=== PATIENT | male | born 1960 | race Caucasian/White ===

== ENCOUNTER → 2018-01-22 09:35 | Outpatient (POV) | payer MEDICAID, SELFPAY | PROVIDERS: Visit Provider Dentist | DX: Z00.00 Encounter for general adult medical examination without abnormal findings (principal) ==

== ENCOUNTER → 2020-10-10 09:53 | Outpatient (CLI) | payer MEDICAID, SELFPAY ==
--- NOTE | 2020-10-10 10:00 | XR_ITS ---
PROCEDURE: XR FOOT RT MIN 3V CLINICAL INDICATION: PAIN IN RT FOOT COMPARISON: No exams were available for comparison FINDINGS: There are severe osteoarthritic changes with prominent osteophytes at the 1st metatarsophalangeal joint. No fracture or dislocation. IMPRESSION: Severe osteoarthritic changes with bony spurs at the 1st metatarsophalangeal joint Dictated by: Aleks Richard MD 10/10/2020 10:27 Aleks Richard MD in [place] 10/10/2020 10:27
== END ==
PROVIDERS: PCP Nurse Practitioner Family; Visit Provider Nurse Practitioner Family
DX: M79.671 Pain in right foot (principal)
CPT/HCPCS: 73630

== ENCOUNTER 2024-04-05 10:50 | Outpatient (CLI) | payer MEDICAID, SELFPAY ==
--- NOTE | 2024-04-05 10:54 | CT_ITS ---
FINAL REPORT TECHNIQUE: Thin section axial images were obtained from the lung apices to the upper abdomen by computed tomography. Reformatted images were obtained and reviewed. This study was performed with techniques to keep radiation doses al low as reasonably achievable (ALARA). Individualized dose reduction techniques using automated exposure control or adjustment of mA and/or kV according to the patient's size were employed. CLINICAL HISTORY: SCREENING current smoker 1/2 ppd, 42 years COMPARISON: None FINDINGS: CHEST CT LOW DOSE 63-year-old male, current smoker, [id number] history. CTDI vol (mGy): 2.90 DLP (mGy-cm): 1-2.20 There is no axillary adenopathy. There is no mediastinal or hilar mass or adenopathy. The heart is normal in size. Dense coronary artery calcifications are noted. There is no pericardial or pleural effusion. Lung window images demonstrate a cavitating and spiculated mass, 5.8 x 3.8 cm, which extends to the pleural margin and is primarily in the superior right middle lobe. Limited images of the upper abdomen demonstrate a 7.3 x 5.0 cm cystic appearing mass in the right kidney. IMPRESSION: Lung-RADS category 4BS, the S designation for dense coronary artery calcifications. Recommend PET/CT or tissue sampling. Reviewed, Interpreted and Dictated by Jose Carlos Gabriel MD Transcribed by Ltaisha Blue Authenticated and [facility]
== END 2024-04-05 23:59 | disposition home or self-care (01) ==
LOC: RAD 10:52
PROVIDERS: PCP Nurse Practitioner Family; Visit Provider Nurse Practitioner Family
DX: F17.210 Nicotine dependence, cigarettes, uncomplicated (principal); Z12.2 Encounter for screening for malignant neoplasm of respiratory organs
CPT/HCPCS: 71271

== ENCOUNTER 2024-11-24 10:24 | Outpatient (CLI) | payer MEDICAID, SELFPAY ==
--- NOTE | 2024-11-24 10:27 | US_ITS ---
FINAL REPORT CLINICAL HISTORY: UMBILICAL HERNIA W/O OBSTRUCTION FINDINGS: Limited sonographic images were obtained at the area of interest. There is a small defect in the anterior abdominal wall. Fat likely protrudes through the defect. No GI tract involvement is identified. The remaining soft tissues are without acute abnormality. IMPRESSION: Probable fat-containing small umbilical hernia at the area of interest. CT could confirm. Reviewed, Interpreted and Dictated by Ivana Walsh MD Transcribed by Fozia Baez Authenticated and [facility]
--- OUTSIDE RECORDS SUMMARY | 2024-11-24 10:35 | XMS_ITS | Clinical Summary ---
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 Active meloxicam (MOBIC) 7.5 MG tablet Take 1 tablet by mouth Daily. Active aspirin 81 MG EC tablet Take 1 tablet by mouth Daily. Pt will hold day before procedure Active rosuvastatin (CRESTOR) 20 MG tablet Take 1 tablet by mouth Daily. 30 tablet 11 5 Active sildenafil (REVATIO) 20 MG tablet Pulmonary hypertension. 5 Active Active Problems Problem Noted Date Diagnosed Date Mass of upper lobe of right lung 04/13/2024 Stage 2 moderate COPD by GOLD classification Personal history of smoking 04/13/2024 Encounters Date Type Department Care Team Description 08/31/2024 10:00 AM EDT Office Visit [facility] [address] [facility] [address] [place] [address] Cristine Noel APRN Mass of upper lobe of right lung (Primary Dx); Stage 2 moderate COPD by GOLD classification; Personal history of smoking 08/31/2024 Travel from Last 3 Months Immunizations Immunization Administration Dates Next Due Flu Vaccine Split Quad 04/13/2024(Deferred: Anahi ent Refused) Fluzone (or Fluarix & Flulav al for VFC) >6mos 12/13/2020,12/22/2017 Influenza Seasonal Injectable 04/13/2024(Deferre d: Parental decision) Family History Medical History Relation Name Comments Heart attack Father Leukemia Mother Relation Name Status Comments Father Mother Social History Tobacco Use Types Packs/Day Years Used Date Smoking Tobacco: Former Cigarettes 0.5 40 0 04/05/1984 - 04/05/2024 Smokeless Tobacco: Never Tobacco Cessation:Counseling Given: Not Answered Alcohol Use Standard Drinks/Week Comments Yes 10 (1 standard drink = 0.6 oz pu re alcohol) 3-4 times a week Abuse Screen Answer Date Recorded Feels Unsafe at Home or Work/School no 04/22/2024 Feels Threatened by Someone no 08/2024 Does Anyone Try to Keep You From Having Contact with Others or Doing Things Outside Your Home? no 04/22/2024 Physical Signs of Abuse Present no 04/22/2024 Housing Stability Answer Date Recorded Current Living Arrangements home 08/2024 Potentially Unsafe Housing Conditions Not on mike e 04/22/2024 Disabilities Answer Date Recorded Difficulty Concentrating, Remembering or Making Decisions no 04/22/2024 Difficulty Managing Errands Independently no 04/22/2024 Education Answer Date Recorded Help with school or training? Not on file Preferred Language Mosotho 04/16/2024 Sex and Gender Information Value Date Recorded Sex Assigned at Not on file Legal Sex Male 2:23 PM EST Gender Identity Not on file Sexual Orientation Not on file Last Filed Vital Signs Vital Sign Reading Time Taken Comments Blood Pressure 138/80 08/31/2024 9:18 AM EDT Pulse 65 08/31/2024 9:18 AM EDT Temperature 36.2 C (97.2 F) 08/31/2024 9:18 AM EDT Respiratory Rate 18 04/22/2024 12:3 0 PM EST Oxygen Saturation 96% 08/31/2024 9:1 8 AM EDT Room air at rest Inhaled Oxygen Concentration - - Weight 101 kg (222 lb) 08/31/2024 9:18 AM EDT Height 193 cm (6' 4 ) 08/31/2024 9:18 AM EDT Body Mass Index 27.02 08/31/2024 9:18 AM EDT Plan of Treatment Upcoming Encounters Date Type Department Care Team (Late st Contact Info) Description 03/02/2025 9:30 AM EST Office Visit [facility]UL[facility]IT[facility] MEDICINE [address] [facility] [address] [place] [address] Cristine Noel, ROAD DRIVER [address] [place], [place] [id number] 06/01/2025 9:30 AM EDT Office Visit [facility] [address] [place] [address] Zoe Roberts, RO[address] DRIVER [address] [place] [address] Health Maintenance Due Date Last Done Comments Pneumococcal Vaccine 50+ (1 of 2 - PCV) 10/30/1979 TDAP/TD VACCINES (1 - Tdap) 10/30/1979 COLOGUARD 2005 COLON CANCER SCREENING 5 YEA R SIGMOIDOSCOPY 2005 COLONOSCOPY 2005 [address] CANCER SCREENING [address] COLONOGRAPHY 2005 FECAL OCCULT BLOOD TEST 2005 FIT Testing (1 year) 2005 ZOSTER VACCINE (1 of 2) 2010 ANNUAL PHYSICAL 04/12/2024 HEPATITIS C SCREENING 04/12/2024 COVID-19 Vaccine ( season) 2024 11/23/2020, 06/15/2020, 05/18/2020 INFLUENZA VACCINE 12/15/2024 12/13/2020, 12/22/2017 LUNG CANCER SCREENING 08/23/2025 08/23/2024, 025 Procedures Procedure Name Priority Date/Time Associated Diagnosis Comments CT CHEST WO CONTRAST DIAGNOSTIC Routine 08/23/2024 2:41 PM EDT Incidental lung nodule, greater than or equal to 8mm from Last 3 Months or Most Recently Relevant to Health Maintenance Results * CT Chest Without Contrast Diagnostic (08/23/2024 2:41 PM EDT) Anatomical Region Laterality Modality Chest N/A Computed Tomogra phy 08/26/2024 11:5 7 AM EDT Impressions 08/26/2024 12:19 PM EDT Impression: Interval resolution of the subpleural nodule in the anterior right upper lobe seen on prior PET/CT. Increased bandlike opacities in the medial right upper lobe, present in the setting of bandlike opacities in the adjacent right middle that are similar to prior PET/CT and lobe noted to be at site of masslike abnormality seen on 04/20/[address] Given waxing/waning features, additional CT follow-up is recommended, perhaps in 3 to 6 months. Background of emphysematous changes. Electronically Signed: Brandon Santos MD 08/26/2024 12:19 PM EDT Workstation ID: [id number] Narrative 08/26/2024 12:[address] CHEST WO CONTRAST DIAGNOSTIC Date of Exam: 08/23/2024 2:35 PM EDT Indication: New Lung Nodule. Comparison: PET/CT 05/14/2024, chest CT 04/20/2024. Technique: Axial CT images were obtained of the chest without contrast administration. Reconstructed coronal and sagittal images were also obtained. Automated exposure control and iterative construction methods were used. Findings: The subpleural nodule within the anterior right upper lobe that was seen on prior PET/CT has resolved in the interval, though there are new predominantly bandlike opacities within this region (series 3 image 250, series 901 image 41); findings are present in the setting of bandlike opacities in the adjacent right middle lobe that are similar to prior PET/CT, and noted to be in the region of masslike abnormality that was present on 04/20/2024 exam. No new or enlarging pulmonary nodule otherwise. Scattered benign calcified granulomas. No focal pneumonia. No pleural effusion or pneumothorax. Central airways are patent. Emphysematous changes. Ascending thoracic aorta measures 4.1 cm, unchanged. Coronary artery calcifications. No pericardial effusion. Calcified mediastinal and hilar lymph nodes consistent with healed granulomatous disease. No pathologically enlarged lymph nodes. No chest wall abnormality. Visualized portions of the upper abdomen demonstrate a large right renal cyst is partially included within the [id number]. Thoracic spondylosis. No acute or suspicious osseous lesion. Procedure Note Brandon Santos MD - 08/26/2024 CT CHEST WO CONTRAST DIAGNOSTIC Date of Exam: 08/23/2024 2:35 PM EDT Indication: New Lung Nodule. Comparison: PET/CT 05/14/2024, chest CT 04/20/2024. Technique: Axial CT images were obtained of the chest without contrastadministration. Reconstructed coronal and sagittal images were alsoobtained. Automated exposure control and iterative construction methodswere used. Findings: The subpleural nodule within the anterior right upper lobe that was seenon prior PET/CT has resolved in the interval, though there are newpredominantly bandlike opacities within this region (series 3 image 250,series 901 image 41); findings are present in the setting of bandlike opacities in the adjacent right middlelobe that are similar to prior PET/CT, and noted to be in the region ofmasslike abnormality that was present on 04/20/2024 exam. No new orenlarging pulmonary nodule otherwise. Scattered benign calcified granulomas. No focal pneumonia. No pleuraleffusion or pneumothorax. Central airways are patent. Emphysematouschanges. Ascending thoracic aorta measures 4.1 cm, unchanged. Coronary arterycalcifications. No pericardial effusion. Calcified mediastinal and hilarlymph nodes consistent with healed granulomatous disease. Nopathologically enlarged lymph nodes. No chest wall abnormality. Visualized portions of the upper abdomen demonstrate a largeright renal cyst is partially included within the [id number]. Thoracicspondylosis. No acute or suspicious osseous lesion. IMPRESSION: Impression: Interval resolution of the subpleural nodule in the anterior right upperlobe seen on prior PET/CT. Increased bandlike opacities in the medialright upper lobe, present in the setting of bandlike opacities in theadjacent right middle that are similar to prior PET/CT and lobe noted to be at site of masslike abnormality seen on04/20/[address] Given waxing/waning features, additional CT follow-upis recommended, perhaps in 3 to 6 months. Background of emphysematous changes. Electronically Signed: Brandon Santos MD 08/26/2024 12:19 PM EDT Workstation ID: [id number] us Huong V. 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
== END 2024-11-24 23:59 | disposition home or self-care (01) ==
LOC: RAD 10:25
PROVIDERS: PCP Nurse Practitioner Family; Visit Provider Nurse Practitioner Family
DX: K42.9 Umbilical hernia without obstruction or gangrene (principal); R93.5 Abnormal findings on diagnostic imaging of other abdominal regions, including retroperitoneum
CPT/HCPCS: 76705